=== PATIENT | female | born 1950 | race Caucasian/White ===

== ENCOUNTER 2018-03-11 09:20 | Day surgery (SDC) | payer MEDICARE, BC, OTHER ==
[2018-03-11] MEDS: D5W 1,000 ML IV ×2 (08:00→09:41)
[~2018-03-11 09:20] MED LIST: ALBUTEROL SULFATE 2.5 MG/0.5 ML INH NEB SOLN INH; LIDOCAINE 4% INJ 5 ML AMP INH
[2018-03-11] MEDS ORDERED: LIDOCAINE 1% MDV 20ML VIAL As Ordered (09:30)
[2018-03-11] MEDS ORDERED: EPINEPHrine 1MG/10ML SYRINGE 1.5IN As Ordered (09:30)
[2018-03-11] MEDS ORDERED: LIDOCAINE 4% INJ 5 ML AMP As Ordered (09:30)
[2018-03-11] MEDS ORDERED: CETACAINE SPRAY 5GM As Ordered (09:33)
[2018-03-11] MEDS ORDERED: LIDOCAINE VISCOUS 2% SOLN 15ML UDC As Ordered (09:57)
[2018-03-11] MEDS ORDERED: fentaNYL 100 MCG/2 ML INJECTION (J3010) As Ordered (10:01)
[2018-03-11] MEDS ORDERED: MIDAZOLAM INJ 2 MG/2 ML VIAL (J2250) As Ordered ×3 (10:03→10:18)
== END 2018-03-11 11:23 | disposition home or self-care (01) ==
LOC: M OPP 09:20
DX: C34.90 Malignant neoplasm of unspecified part of unspecified bronchus or lung (principal); R91.8 Other nonspecific abnormal finding of lung field; R06.02 Shortness of breath; G47.33 Obstructive sleep apnea (adult) (pediatric); Z98.1 Arthrodesis status; H25.9 Unspecified age-related cataract; Z88.1 Allergy status to other antibiotic agents; Z79.899 Other long term (current) drug therapy
CPT/HCPCS: 31623